=== PATIENT | male | born 1980 | race Caucasian/White ===

== ENCOUNTER 2017-05-27 07:28 | Emergency (ER) | payer OTHER ==
[~2017-05-27] VITALS: Ht 172.7 cm; Wt 81.7 kg
[~2017-05-27 07:28] MED LIST: IBUPROFEN600 MG PO; ULTRAM50 MG PO
[2017-05-27] MEDS ORDERED: NORCO 10-325 T1 EACH PO (08:23)
[2017-05-27] MEDS ORDERED: AUGMENTIN 875-1 EACH PO (08:23)
== END 2017-05-27 09:56 | disposition home or self-care (01) ==
LOC: ED 07:28
PROC: 0HQFXZZ Repair Right Hand Skin, External Approach (ICD-10-PCS; principal; 2017-05-27)
DX: S66.320A Laceration of extensor muscle, fascia and tendon of right index finger at wrist and hand level, initial encounter (principal); S66.322A Laceration of extensor muscle, fascia and tendon of right middle finger at wrist and hand level, initial encounter; W26.8XXA Contact with other sharp object(s), not elsewhere classified, initial encounter
CPT/HCPCS: 12001; 73130; 90715; 99283; J0696